=== PATIENT | female | born 1965 | race Two or more races ===

== ENCOUNTER 2017-05-07 12:27 | Inpatient (IN) | payer MEDICAID ==
[~2017-05-07] VITALS: Ht 157.5 cm; Wt 90.2 kg
[2017-05-07 14:05] LABS: Basophils # (auto) 0.1 uL; Eosinophils # (auto) 0.2 uL; Hemoglobin 7.1 g/dL (12.2-16.2); Lymphocytes # (auto) 1.8 uL
[2017-05-07 14:09] LABS: Basophils % (auto) 0.8 % (0.0-2.0); Eosinophils % (auto) 2.2 % (0.0-7.0); Hematocrit 22.2 % (36.0-46.0); Lymphocytes % (auto) 16.1 % (10.0-50.0); Mean Corpuscular Hemoglobin 25.4 pg (28.0-32.0); Mean Corpuscular Hgb Conc. 32.2 g/dL (32.0-36.0); Monocytes # (auto) 0.6 uL; Monocytes % (auto) 5.2 % (0.0-12.0); Neutrophils # (auto) 8.3 uL; Neutrophils % (auto) 75.7 % (37.0-80.0); Platelet Count (auto) 364 10^3/uL (140-450); Red Blood Cells 2.81 10^6/uL (4.0-5.20); Red Cell Distribution Width 16.9 % (11.8-14.3); White Blood Cell 10.9 10^3/uL (4.4-10.8)
[2017-05-07 14:43] LABS: Albumin 2.8 g/dL (3.4-5.0); BUN/Creatinine Ratio 11.7; Bilirubin, Total 0.3 mg/dL (0.2-1.0); Calcium 7.6 mg/dL (8.5-10.1); Total Protein 6.6 g/dL (6.4-8.2)
[2017-05-07 14:55] LABS: Potassium 2.9 mmol/L (3.5-5.1)
[2017-05-07] MEDS ORDERED: POTASSIUM CHL 20MEQ/100ML 100 ML IV ONE (15:00)
[2017-05-07] MEDS ORDERED: IOHEXOL 300 MG/ML 100ML BOTTLE IJ ONE (15:15)
[2017-05-07] MEDS ORDERED: IODIXANOL 320MG/ML 100ML BTL IV ONE (15:16)
[2017-05-07] MEDS ORDERED: POTASSIUM CHLORIDE 20 MEQ, LIDOCAINE 1% (LOCAL ANESTH.) 2 ML in SODIUM CHL 0.9% 100 ML IV ONE (16:30)
[2017-05-07] MEDS ORDERED: SODIUM CHLORIDE 0.9% 1,000 ML IV SCH (17:07)
[2017-05-07] MEDS ORDERED: ONDANSETRON HCL 4 MG/2 ML VIAL IV PRN (17:15)
[2017-05-07] MEDS ORDERED: amLODIPine BESYLATE 5 MG TAB PO ONE (17:15)
[2017-05-07] MEDS ORDERED: DEXTROSE (50%) 50ML SYRG IV PRN (17:15)
[2017-05-07] MEDS ORDERED: HYDROcodone-ACET 5/325MG TAB PO PRN (17:15)
[2017-05-07] MEDS ORDERED: NITROGLYCERIN 0.4 MG SL TAB SL PRN (17:15)
[2017-05-07] MEDS ORDERED: cloNIDine HCL 0.1 MG TAB PO PRN (17:15)
[2017-05-07] MEDS ORDERED: ACETAMINOPHEN 325 MG TAB PO PRN (17:15)
[2017-05-07] MEDS ORDERED: DOCUSATE SOD 100 MG CAP PO PRN (17:15)
[2017-05-07] MEDS ORDERED: TEMAZEPAM 15 MG CAP PO PRN (17:15)
[2017-05-07] MEDS ORDERED: LISINOPRIL 5 MG TAB PO ONE (17:15)
[2017-05-07] MEDS ORDERED: MORPHINE SULFATE 4 MG/ML SYR/VIAL IV PRN (17:15)
[2017-05-07] MEDS: Boost Glucose Control 8 Ounces PO SCH (18:00)
[2017-05-07] MEDS: IPRATROPIUM BROM 0.5 MG/2.5ML INH SOL NEB SCH (18:58)
[2017-05-07] MEDS: ALBUTEROL SULF 2.5 MG/0.5ML(0.5%) NEB SOLN NEB PRN (19:08)
[2017-05-07 19:53] LABS: Hemoglobin 7.4 g/dL (12.2-16.2)
[2017-05-07 19:55] LABS: Hematocrit 23.7 % (36.0-46.0)
[2017-05-07 20:08] LABS: Calcium 7.8 mg/dL (8.5-10.1); Potassium 3.1 mmol/L (3.5-5.1)
[2017-05-07 21:00] VITALS: BP 206/109
[2017-05-07] MEDS ORDERED: hydrALAZINE HCL 20 MG/ML VL IV ONE (21:15)
[2017-05-07] MEDS ORDERED: hydrALAZINE HCL 20 MG/ML VL IV PRN (21:15)
[2017-05-07] MEDS: FAMOTIDINE 20 MG TAB PO SCH (21:32)
[2017-05-07] MEDS: ACCU-CHEK COMFORT CURVE STRIP VI SCH (22:07)
[2017-05-07] MEDS: InsuLIN REG 1unit/0.01ml Soln (100units/ml) SC SCH (22:08)
[2017-05-07] MEDS ORDERED: LORazepam 0.5 MG TAB PO ONE (22:45)
[2017-05-08] VITALS (13 sets, daily range): BP systolic 144–186; BP diastolic 70–96
[2017-05-08] MEDS ORDERED: LABETALOL HCL 5 MG/ML ML 20ML VIAL IV ONE (01:30)
[2017-05-08] MEDS: IPRATROPIUM BROM 0.5 MG/2.5ML INH SOL NEB SCH ×4 (01:39→18:43)
[2017-05-08] MEDS: ALBUTEROL SULF 2.5 MG/0.5ML(0.5%) NEB SOLN NEB PRN ×3 (01:39→18:43)
[2017-05-08 06:00] LABS: Basophils # (auto) 0.1 uL; Eosinophils # (auto) 0.2 uL; Lymphocytes # (auto) 1.8 uL; Monocytes # (auto) 0.7 uL
[2017-05-08 06:04] LABS: Hematocrit 21.9 % (36.0-46.0); Lymphocytes % (auto) 15.2 % (10.0-50.0); Mean Corpuscular Hemoglobin 25.2 pg (28.0-32.0); Mean Corpuscular Hgb Conc. 31.9 g/dL (32.0-36.0); Mean Corpuscular Volume 78.9 fL (80.0-100.0); Monocytes % (auto) 5.7 % (0.0-12.0); Neutrophils # (auto) 9.2 uL; Neutrophils % (auto) 76.1 % (37.0-80.0); Nucleated Red Blood Cells % 0.2 %; Platelet Count (auto) 379 10^3/uL (140-450); Red Blood Cells 2.78 10^6/uL (4.0-5.20); White Blood Cell 12.1 10^3/uL (4.4-10.8)
[2017-05-08] MEDS: ACCU-CHEK COMFORT CURVE STRIP VI SCH ×4 (06:13→21:21)
[2017-05-08] MEDS: InsuLIN REG 1unit/0.01ml Soln (100units/ml) SC SCH ×4 (06:14→21:36)
[2017-05-08 06:19] LABS: Albumin 2.7 g/dL (3.4-5.0); BUN/Creatinine Ratio 14.6; Calcium 8.1 mg/dL (8.5-10.1); Potassium 3.3 mmol/L (3.5-5.1)
[2017-05-08 06:25] LABS: Bilirubin, Total 0.4 mg/dL (0.2-1.0); Total Protein 6.4 g/dL (6.4-8.2)
[2017-05-08] MEDS: Boost Glucose Control 8 Ounces PO SCH ×3 (08:00→18:00)
[2017-05-08] MEDS ORDERED: D5W 5% 1,000 ML IV SCH (08:30)
[2017-05-08] MEDS: MULTIPLE VITAMIN TAB PO SCH (09:45)
[2017-05-08] MEDS: FAMOTIDINE 20 MG TAB PO SCH ×2 (09:46→21:21)
[2017-05-08] MEDS: amLODIPine BESYLATE 5 MG TAB PO SCH (09:46)
[2017-05-08] MEDS: LISINOPRIL 5 MG TAB PO SCH (09:47)
[2017-05-08] MEDS: POTASSIUM CHL 20 Meq TABLET PO SCH ×2 (11:38→21:20)
[2017-05-08] MEDS: medroxyPROGESTERone ACETATE 5 MG TAB PO SCH (12:42)
[2017-05-08] MEDS: LABETALOL HCL 5 MG/ML ML 20ML VIAL IV PRN (14:08)
[2017-05-09] MEDS: ALBUTEROL SULF 2.5 MG/0.5ML(0.5%) NEB SOLN NEB PRN ×3 (00:42→11:49)
[2017-05-09] MEDS: IPRATROPIUM BROM 0.5 MG/2.5ML INH SOL NEB SCH ×4 (00:42→18:00)
[2017-05-09 05:00] VITALS: BP 185/79
[2017-05-09] MEDS: LABETALOL HCL 5 MG/ML ML 20ML VIAL IV PRN ×3 (05:49→16:12)
[2017-05-09 06:52] LABS: Basophils # (auto) 0.1 uL; Monocytes # (auto) 0.7 uL; Nucleated Red Blood Cells % 0.2 %
[2017-05-09] MEDS: InsuLIN REG 1unit/0.01ml Soln (100units/ml) SC SCH ×3 (06:54→17:00)
[2017-05-09 06:55] LABS: Basophils % (auto) 0.9 % (0.0-2.0); Eosinophils # (auto) 0.2 uL; Eosinophils % (auto) 1.9 % (0.0-7.0); Hematocrit 29.7 % (36.0-46.0); Hemoglobin 9.5 g/dL (12.2-16.2); Lymphocytes # (auto) 1.9 uL; Mean Corpuscular Hemoglobin 26.4 pg (28.0-32.0); Mean Corpuscular Volume 82.4 fL (80.0-100.0); Monocytes % (auto) 5.1 % (0.0-12.0); Neutrophils % (auto) 77.1 % (37.0-80.0); Platelet Count (auto) 361 10^3/uL (140-450); Red Blood Cells 3.61 10^6/uL (4.0-5.20); Red Cell Distribution Width 17.4 % (11.8-14.3); White Blood Cell 12.9 10^3/uL (4.4-10.8)
[2017-05-09] MEDS: ACCU-CHEK COMFORT CURVE STRIP VI SCH ×3 (06:55→17:00)
[2017-05-09 07:06] LABS: BUN/Creatinine Ratio 14.9; Calcium 8.6 mg/dL (8.5-10.1); Potassium 3.7 mmol/L (3.5-5.1)
[2017-05-09 08:00] VITALS: BP 185/93
[2017-05-09 09:00] VITALS: BP 185/93
[2017-05-09] MEDS: Boost Glucose Control 8 Ounces PO SCH ×3 (09:15→18:00)
[2017-05-09] MEDS: FAMOTIDINE 20 MG TAB PO SCH (09:34)
[2017-05-09] MEDS: MULTIPLE VITAMIN TAB PO SCH (09:34)
[2017-05-09] MEDS: amLODIPine BESYLATE 5 MG TAB PO SCH (09:35)
[2017-05-09] MEDS: medroxyPROGESTERone ACETATE 5 MG TAB PO SCH (09:36)
[2017-05-09] MEDS: LISINOPRIL 5 MG TAB PO SCH (09:37)
[2017-05-09 13:00] VITALS: BP 172/89
[2017-05-09 17:00] VITALS: BP 183/65
== END 2017-05-09 17:43 | disposition left against medical advice (07) | DRG 532 ==
LOC: ER 12:27 → TELE 12:28 → TELE-EAST 18:27 → TELE-CENTR 05-08 22:39
PROVIDERS: ADMIT Internal Medicine; ATTEND Internal Medicine
PROC: 30233N1 Transfusion of Nonautologous Red Blood Cells into Peripheral Vein, Percutaneous Approach (ICD-10-PCS; principal; 2017-05-08)
DX: N80.0 Endometriosis of uterus (principal); E11.21 Type 2 diabetes mellitus with diabetic nephropathy; E44.0 Moderate protein-calorie malnutrition; I50.32 Chronic diastolic (congestive) heart failure; I11.0 Hypertensive heart disease with heart failure; E11.65 Type 2 diabetes mellitus with hyperglycemia; D50.0 Iron deficiency anemia secondary to blood loss (chronic); F17.210 Nicotine dependence, cigarettes, uncomplicated; K76.0 Fatty (change of) liver, not elsewhere classified; N93.8 Other specified abnormal uterine and vaginal bleeding; E83.51 Hypocalcemia; Z53.21 Procedure and treatment not carried out due to patient leaving prior to being seen by health care provider; D25.9 Leiomyoma of uterus, unspecified; E87.6 Hypokalemia; Z80.1 Family history of malignant neoplasm of trachea, bronchus and lung; Z82.49 Family history of ischemic heart disease and other diseases of the circulatory system; Z83.3 Family history of diabetes mellitus; Z90.49 Acquired absence of other specified parts of digestive tract; Z68.36 Body mass index [BMI] 36.0-36.9, adult; N92.1 Excessive and frequent menstruation with irregular cycle
CPT/HCPCS: 36415; 36430; 71045; 71275; 76856; 80048; 80053; 82728; 82962; 83036; 83540; 83550; 83735; 83880; 84443; 84484; 85014; 85018; 85025; 85045; 85379; 86850; 86900; 86901; 86920; 93005; 93306; 93971; 94640; 96374; 99291; J1815; J2001; Q9967